=== PATIENT | female | born 1965 | race Caucasian/White ===

== ENCOUNTER 2023-02-27 11:24 | Emergency (ER) | payer BC ==
[~2023-02-27] VITALS: Ht 149.9 cm; Wt 67.0 kg
[~2023-02-27 11:24] MED LIST: ALENDRONATE70 MG PO; LEVOTHYROXIN88 MC1 PO; PRILOSEC40 MG PO
[2023-02-27 11:38] VITALS: BP 149/87
[2023-02-27 11:57] LABS: BASO% 0.5 % (0-3); EOS% 0.5 % (0-8); HEMATOCRIT 45.4 % (37.0-47.0); HEMOGLOBIN 15.4 g/dl (12.0-16.0); IMMATURE GRANULOCYTES 0.2 % (0.0-5.0); LYMPH% 18.1 % (15-41); MEAN CELL VOLUME 88.2 fL CALC (80.0-100.0); MEAN CORPUSCULAR HGB 29.9 pG CALC (26.0-32.0); MEAN CORPUSCULAR HGB CONC 33.9 g/dL CAL (32.0-36.0); MONO% 5.1 % (2-13); NEUT# 6.71 thou/uL (2.00-7.15); NEUT% 75.6 % (42-76); RED BLOOD COUNT 5.15 mill/uL (4.20-5.60); RED CELL DISTRI WIDTH 12.3 % (11.5-15.5)
[2023-02-27 12:02] LABS: ALBUMIN 4.5 g/dL (3.2-5.0); ALKALINE PHOSPHATASE 74 u/l (38-126); ANION GAP 12 (6-22 (CALC)); BILIRUBIN, TOTAL 1.3 mg/dL (0.02-1.3); BUN 8 mg/dL (7-17); BUN/CREATININE RATIO 15 (12-20 (CALC)); CARBON DIOXIDE 23 mmol/l (22-30); CHLORIDE 107 mmol/l (95-108); CREATININE 0.5 mg/dL (0.5-1.0); GFR FOR AFR.AMER. > 60 ML/MIN (>=60 (CALC)); GFR OTHER RACES > 60 ML/MIN (>=60 (CALC)); LIPASE 53 u/l (23-300); SGOT/AST 31 u/l (14-36); SODIUM 139 mmol/l (137-146); TOTAL PROTEIN 7.2 g/dL (6.3-8.2)
[2023-02-27 12:03] VITALS: BP 159/92
[2023-02-27 12:30] VITALS: BP 159/89
[2023-02-27] MEDS ORDERED: ZOFRAN4 MG/TAB PO (13:39)
[2023-02-27] MEDS ORDERED: CIPROFLOXACN500 MG PO (13:39)
[2023-02-27] MEDS ORDERED: METRONIDAZOLE500 MG PO (13:39)
[2023-02-27 13:53] VITALS: BP 152/88
[2023-02-27 21:10] VITALS: BP 133/85
== END 2023-02-27 14:11 | disposition home or self-care (01) | DRG 392 ==
LOC: ED 11:24
PROVIDERS: Family Medicine
DX: K52.9 Noninfective gastroenteritis and colitis, unspecified (principal)
CPT/HCPCS: Q9967

== ENCOUNTER → 2023-05-09 | Day surgery (SDC) | payer BC ==
[~2023-05-09] VITALS: Ht 149.9 cm; Wt 66.2 kg
[~2023-05-09] MED LIST changes: +CIPROFLOXACN500 MG PO; +CLARITIN10 M1 PO; +FAMOTIDINE20 M1 PO; +METRONIDAZOLE500 MG PO; +ZOFRAN4 MG/TAB PO
[2023-05-09 08:57] VITALS: BP 123/78
== END | disposition home or self-care (01) | DRG 379 ==
LOC: ENDO 06:48 → ORM 08:15
PROVIDERS: ATTEND Internal Medicine Gastroenterology
PROC: 0DJD8ZZ Inspection of Lower Intestinal Tract, Via Natural or Artificial Opening Endoscopic (ICD-10-PCS; principal; 2023-05-09)
DX: K57.31 Diverticulosis of large intestine without perforation or abscess with bleeding (principal); K64.8 Other hemorrhoids; E03.9 Hypothyroidism, unspecified